=== PATIENT | female | born 1995 | race Caucasian/White ===

== ENCOUNTER 2018-09-08 06:58 | Emergency (ER) | payer SELFPAY ==
[~2018-09-08] VITALS: Ht 160 cm; Wt 52.3 kg
[2018-09-08 07:01] VITALS: TEMP 98
[2018-09-08 07:11] LABS: COLLECTION METHOD CLEAN CATCH
[2018-09-08 07:23] LABS: PH 7 (5-8); SQUAMOUS EPITHELIAL 0-2 /hpf; URINE APPEARANCE Clear; URINE BACTERIA None Seen /hpf; URINE BILIRUBIN Negative (NEGATIVE); URINE BLOOD 3+ (NEGATIVE); URINE COLOR Straw; URINE GLUCOSE Negative (NEGATIVE); URINE KETONE Negative (NEGATIVE); URINE LEUKOCYTE ESTERASE 2+ (NEGATIVE); URINE NITRATE Negative (NEGATIVE); URINE PROTEIN(semi-quant) Negative (NEGATIVE); URINE RBC 0-2 /hpf; URINE UROBILINOGEN Negative (NEGATIVE)
[2018-09-08] MEDS ORDERED: MACROBID 1100 MG/CAP PO (07:44)
[2018-09-08 08:06] VITALS: BP 104/71; PULSE 83
== END 2018-09-08 08:03 | disposition home or self-care (01) ==
LOC: COL.ER 06:58
PROVIDERS: Family Medicine
DX: N39.0 Urinary tract infection, site not specified (principal)